=== PATIENT | female | born 1995 | race Caucasian/White ===

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

== ENCOUNTER → 2017-01-30 | Outpatient (REF) | payer OTHER | LOC: M LAB REF 11:12 | PROVIDERS: ATTEND Physician Assistant Medical | DX: J11.00 Influenza due to unidentified influenza virus with unspecified type of pneumonia (principal) ==

== ENCOUNTER 2017-05-20 17:50 | Emergency (ER) | payer OTHER | END 2017-05-20 19:30 | disposition home or self-care (01) | LOC: M ED 17:50 | DX: J02.9 Acute pharyngitis, unspecified (principal); B34.9 Viral infection, unspecified | CPT/HCPCS: 87880 ==

== ENCOUNTER 2017-10-09 19:00 | Emergency (ER) | payer OTHER ==
[2017-10-09] MEDS: AUGMENTIN 875 MG TAB PO (20:28)
[2017-10-09] MEDS: NORCO, ANEXSIA 5/325MG TABLET (HYDROcodone/ACETAMINOPHEN) PO (20:28)
[2017-10-09] MEDS: IBUPROFEN 800 MG TAB PO (20:28)
== END 2017-10-09 20:31 | disposition home or self-care (01) ==
LOC: M ED 19:00
DX: K04.7 Periapical abscess without sinus (principal); K02.9 Dental caries, unspecified; J45.909 Unspecified asthma, uncomplicated
CPT/HCPCS: 99283

== ENCOUNTER 2017-10-21 21:16 | Emergency (ER) | payer OTHER ==
[2017-10-21] MEDS: KETOROLAC 30 MG/ML VIAL (J1885) IV (22:00)
[2017-10-21] MEDS: NS 1,000 ML IV (22:00)
[2017-10-21] MEDS: diphenhydrAMINE INJ 50MG/ML VIAL (J1200) IV (22:00)
[2017-10-21] MEDS: METOCLOPRAMIDE INJ 10MG/2ML VIAL (J2765) IV (22:00)
[2017-10-21 22:11] LABS: BASO # 0.1 10^3/uL (0.0-0.2); BASO % 0.3 % (0.0-1.0); HEMATOCRIT 35.8 % (36.0-47.0); HEMOGLOBIN 11.7 g/dl (12.0-15.5); IMMATURE GRANULOCYTE % 0.5 % (0-3.0); LYMPH # 1.3 10^3/uL (1.5-6.5); LYMPH % 6.9 % (24.0-44.0); MEAN CORPUSCULAR HEMOGLOBIN 27.9 pg (27.0-33.0); MEAN CORPUSCULAR HGB CONC 32.7 g/dl (32.0-36.5); MEAN CORPUSCULAR VOLUME 85.4 fl (80.0-96.0); MONO # 1.3 10^3/uL (0.0-0.8); MONO % 6.7 % (0.0-5.0); NEUTROPHILS # 16.1 10^3/uL (1.8-7.7); NEUTROPHILS % 85.6 % (36.0-66.0); PLATELET COUNT, AUTOMATED 434 10^3/uL (150-450); RED BLOOD COUNT 4.19 10^6/uL (4.00-5.40); RED CELL DISTRIBUTION WIDTH 12.4 % (11.5-14.5); WHITE BLOOD COUNT 18.8 10^3/uL (4.0-10.0)
[2017-10-21 22:32] LABS: CONTROL LINE HCG INT CTR LINE PRESENT; HCG, SERUM QUALITATIVE NEGATIVE (NEGATIVE)
[2017-10-21 22:38] LABS: ALBUMIN 3.6 GM/DL (3.2-5.2); ALBUMIN/GLOBULIN RATIO 0.86 (1.00-1.93); ALKALINE PHOSPHATASE 83 U/L (45-117); ALT/SGPT 33 U/L (12-78); ANION GAP 10 MEQ/L (8-16); AST/SGOT 20 U/L (7-37); BILIRUBIN,TOTAL 0.7 MG/DL (0.2-1.0); BLOOD UREA NITROGEN 10 MG/DL (7-18); CALCIUM LEVEL 8.6 MG/DL (8.5-10.1); CARBON DIOXIDE LEVEL 22 MEQ/L (21-32); CHLORIDE LEVEL 107 MEQ/L (98-107); CREATININE FOR GFR 0.95 MG/DL (0.55-1.30); GLUCOSE, FASTING 97 MG/DL (70-100); LIPASE 99 U/L (73-393); POTASSIUM SERUM 3.3 MEQ/L (3.5-5.1); SODIUM LEVEL 139 MEQ/L (136-145); TOTAL PROTEIN 7.8 GM/DL (6.4-8.2)
[2017-10-21] MEDS ORDERED: ISOVUE-370 76% 100ML VIAL (Q9967) As Ordered (23:05)
[2017-10-22 01:09] LABS: KETONE, URINE AUTO RFX TRACE mg/dL (NEGATIVE); NITRITE, URINE AUTO RFX NEGATIVE (NEGATIVE); RBC, URINE AUTO RFX 2 /HPF (0-3); SPECIFIC GRAVITY UR AUTO RFX 1.034 (1.002-1.035); SQUAM EPITHELIAL CELL UR AURFX 0 /HPF (0-6)
[2017-10-22 01:33] LABS: LEUKOCYTE ESTERASE UR AUTO RFX 3+ (NEGATIVE); WBC, URINE AUTO RFX 95 /HPF (0-3)
[2017-10-22] MEDS: POTASSIUM CHLORIDE 10 MEQ SR TABLET PO (02:16)
[2017-10-22] MEDS ORDERED: ONDANSETRON 4MG/2ML VIAL (J2405) IV (03:00)
[2017-10-22] MEDS: CIPROFLOXACIN 500 MG TAB PO (03:18)
[2017-10-22] MEDS: metroNIDAZOLE (FLAGYL) 500 MG TAB PO (03:18)
== END 2017-10-22 03:22 | disposition home or self-care (01) ==
LOC: M ED 10-22 03:22
DX: N39.0 Urinary tract infection, site not specified (principal); K52.9 Noninfective gastroenteritis and colitis, unspecified; J45.909 Unspecified asthma, uncomplicated
CPT/HCPCS: J1200

== ENCOUNTER → 2018-06-17 | Outpatient (REF) | payer OTHER ==
[~2018-06-17] MED LIST changes: -ACET50TA PO; +AUGM875T28 PO; +CIPR-249 PO; +FLAG500T PO; +IBUP80TA PO; +MAGICMW MT; +MAPA500T2 PO
[2018-06-17 22:38] LABS: CHLAMYDIA DNA AMPLIFICATION NEGATIVE (NEGATIVE); GC DNA AMPLIFICATION NEGATIVE (NEGATIVE)
== END ==
LOC: M LAB REF 17:16
PROVIDERS: ATTEND Advanced Practice Midwife
DX: Z11.3 Encounter for screening for infections with a predominantly sexual mode of transmission (principal); Z12.4 Encounter for screening for malignant neoplasm of cervix

== ENCOUNTER 2018-07-29 10:46 | Emergency (ER) | payer OTHER ==
[~2018-07-29] VITALS: Ht 160 cm; Wt 88.8 kg
[2018-07-29 11:43] LABS: BASO # 0.1 10^3/uL (0.0-0.2); BASO % 0.9 % (0.0-1.0); EOS # 0.2 10^3/uL (0.0-0.50); EOS % 1.9 % (0.0-3.0); HEMATOCRIT 40.1 % (36.0-47.0); HEMOGLOBIN 13.3 g/dl (12.0-15.5); LYMPH # 2.6 10^3/uL (1.5-6.5); LYMPH % 29.4 % (24.0-44.0); MEAN CORPUSCULAR HEMOGLOBIN 29.2 pg (27.0-33.0); MEAN CORPUSCULAR HGB CONC 33.2 g/dl (32.0-36.5); MEAN CORPUSCULAR VOLUME 87.9 fl (80.0-96.0); MONO # 0.6 10^3/uL (0.0-0.8); MONO % 6.3 % (0.0-5.0); NEUTROPHILS # 5.5 10^3/uL (1.8-7.7); NEUTROPHILS % 61.2 % (36.0-66.0); PLATELET COUNT, AUTOMATED 419 10^3/uL (150-450); RED BLOOD COUNT 4.56 10^6/uL (4.00-5.40); WHITE BLOOD COUNT 8.9 10^3/uL (4.0-10.0)
[2018-07-29 12:12] LABS: BLOOD UREA NITROGEN 7 MG/DL (7-18); CALCIUM LEVEL 8.6 MG/DL (8.5-10.1); CARBON DIOXIDE LEVEL 25 MEQ/L (21-32); CHLORIDE LEVEL 110 MEQ/L (98-107); CREATININE FOR GFR 0.62 MG/DL (0.55-1.30); GLOMERULAR FILTRATION RATE > 60.0 (>60); GLUCOSE, FASTING 82 MG/DL (70-100); POTASSIUM SERUM 4.1 MEQ/L (3.5-5.1); SODIUM LEVEL 141 MEQ/L (136-145)
--- NOTE | 2018-07-29 12:48 | REP ---
FIRST TRIMESTER ULTRASOUND: Real-time sonographic evaluation of the pelvis performed utilizing transabdominal and endovaginal technique. The uterus measures 9.8 x 5.1 x 7.4 cm. Oval sac in the endometrial canal has a mean sac diameter of 21 mm which would correspond to an estimated gestational age of 7 weeks. Internally there are three ring-like structures having the appearance of yolk sacs, no pole is seen. No subchorionic hemorrhage is seen. Ovaries are normal in size and echotexture, right ovary measuring 2.8 x 1.7 x 2.5 cm and left ovary 2.5 x 2.0 x 1.4 cm. There is no evidence of adnexal mass or free fluid. There is no ovarian torsion, resistive index right ovary 0.51 and left ovary 0.62. IMPRESSION: Intrauterine sac contains three ring-like structures which may represent three yolk sacs. No pole is seen. No subchorionic hemorrhage. Findings may represent an early triplet . However, viability is uncertain. Recommend followup ultrasound and correlation with serial quantitative beta hCG values. Electronically Signed by Adrian Krishnan MD 07/29/2018 03:22 P
[2018-07-29 13:12] LABS: HCG, SERUM QUANTITATIVE 1584 MIU/ML
[2018-07-29 13:26] VITALS: BP 107/64
== END 2018-07-29 13:27 | disposition home or self-care (01) ==
LOC: M ED 10:46
DX: O20.0 Threatened abortion (principal); O99.519 Diseases of the respiratory system complicating pregnancy, unspecified trimester; J45.909 Unspecified asthma, uncomplicated; Z3A.00 Weeks of gestation of pregnancy not specified

== ENCOUNTER 2018-07-30 00:24 | Emergency (ER) | payer OTHER ==
[~2018-07-30] VITALS: Ht 160 cm; Wt 90.9 kg
[2018-07-30] MEDS: NS 1,000 ML IV ONE (01:00)
[2018-07-30 01:11] LABS: HEMATOCRIT 39.2 % (36.0-47.0); MEAN CORPUSCULAR HEMOGLOBIN 29.3 pg (27.0-33.0); MEAN CORPUSCULAR HGB CONC 33.2 g/dl (32.0-36.5); MEAN CORPUSCULAR VOLUME 88.3 fl (80.0-96.0); PLATELET COUNT, AUTOMATED 418 10^3/uL (150-450); RED BLOOD COUNT 4.44 10^6/uL (4.00-5.40); WHITE BLOOD COUNT 13.9 10^3/uL (4.0-10.0)
[2018-07-30] MEDS: ACETAMINOPHEN 325 MG TAB PO ONE (01:41)
[2018-07-30 02:05] VITALS: BP 105/54
== END 2018-07-30 02:12 | disposition home or self-care (01) ==
LOC: M ED 00:24
DX: O20.0 Threatened abortion (principal)

== ENCOUNTER → 2018-07-31 | Outpatient (CLI) | payer OTHER ==
[~2018-07-31] MED LIST changes: +PERC5TAB12 PO
== END ==
LOC: M LAB 11:34
PROVIDERS: ATTEND Physician Assistant Medical
DX: O20.0 Threatened abortion (principal)

== ENCOUNTER 2018-08-02 12:52 | Emergency (ER) | payer OTHER ==
[~2018-08-02] VITALS: Ht 157.5 cm; Wt 90.0 kg
[~2018-08-02 12:52] MED LIST changes: -PERC5TAB12 PO
[2018-08-02] MEDS ORDERED: KETOROLAC 30 MG/ML VIAL (J1885) IV ONE (13:15)
[2018-08-02] MEDS ORDERED: NS 1,000 ML IV ONE (13:15)
[2018-08-02 13:33] LABS: BASO # 0.1 10^3/uL (0.0-0.2); BASO % 0.5 % (0.0-1.0); EOS # 0.1 10^3/uL (0.0-0.50); EOS % 0.6 % (0.0-3.0); HEMATOCRIT 33.2 % (36.0-47.0); LYMPH # 2.4 10^3/uL (1.5-6.5); LYMPH % 19.6 % (24.0-44.0); MEAN CORPUSCULAR HEMOGLOBIN 29.7 pg (27.0-33.0); MEAN CORPUSCULAR HGB CONC 33.1 g/dl (32.0-36.5); MEAN CORPUSCULAR VOLUME 89.7 fl (80.0-96.0); MONO # 0.5 10^3/uL (0.0-0.8); MONO % 4.1 % (0.0-5.0); NEUTROPHILS # 9.3 10^3/uL (1.8-7.7); PLATELET COUNT, AUTOMATED 377 10^3/uL (150-450); WHITE BLOOD COUNT 12.4 10^3/uL (4.0-10.0)
[2018-08-02 14:10] LABS: BLOOD UREA NITROGEN 8 MG/DL (7-18); CALCIUM LEVEL 9.1 MG/DL (8.5-10.1); CARBON DIOXIDE LEVEL 26 MEQ/L (21-32); CHLORIDE LEVEL 108 MEQ/L (98-107); CREATININE FOR GFR 0.72 MG/DL (0.55-1.30); GLOMERULAR FILTRATION RATE > 60.0 (>60); GLUCOSE, FASTING 92 MG/DL (70-100); HCG, SERUM QUANTITATIVE 429 MIU/ML; POTASSIUM SERUM 4.7 MEQ/L (3.5-5.1); SODIUM LEVEL 141 MEQ/L (136-145)
[2018-08-02] MEDS ORDERED: IBUP80TA PO (16:07)
[2018-08-02] MEDS ORDERED: PERC5TAB12 PO (16:07)
[2018-08-02 16:20] VITALS: BP 100/77
--- NOTE | 2018-08-03 10:23 | REP ---
FIRST TRIMESTER OBSTETRIC SONOGRAPHY: HISTORY: Vaginal bleeding and cramping. Beta hCG level 2 days ago 862, today 429. Comparison sonography July 29, 2018. IMPRESSION: Uterus is now empty. No gestational sac is visible. Findings most compatible with spontaneous . FINDINGS: Transvaginal and transabdominal scanning are performed. A normal-sized empty uterus is seen with dimensions of 9.5 x 4.2 x 5.0 cm. Endometrial echo 0.1 cm thick. No gestational sac is seen. Bilaterally normal ovaries are observed. Right ovary dimensions are 2.8 x 1.5 x 1.9 cm. Left ovary measures 2.6 x 1.3 x 1.7 cm. Left ovary is only visible transabdominally. Doppler flow is normal in both ovaries. Resistive indices are 0.53 and 0.70 on the right and left respectively. IMPRESSION: Uterus is now empty. No gestational sac is visible. Findings most compatible with spontaneous . Electronically Signed by Hood Bermudez MD 08/03/2018 10:29 A
== END 2018-08-02 16:28 | disposition home or self-care (01) ==
LOC: M ED 12:52
DX: O03.89 Complete or unspecified spontaneous abortion with other complications (principal); D64.9 Anemia, unspecified
CPT/HCPCS: 76801; 76817; 80048; 84702; 85025; 93976; 96374; 99284; J1885

== ENCOUNTER → 2018-10-04 | Outpatient (REF) | payer OTHER ==
[~2018-10-04] MED LIST changes: +PERC5TAB12 PO
[2018-10-04 18:31] LABS: URINE PREG TEST NEGATIVE (NEGATIVE)
== END ==
LOC: M LAB REF 10:43
PROVIDERS: ATTEND Nurse Practitioner Family
DX: Z36.89 Encounter for other specified antenatal screening (principal)

== ENCOUNTER → 2019-09-08 | Outpatient (REF) | payer OTHER, MEDICAID ==
[2019-09-08 18:56] LABS: HEMATOCRIT 36.7 % (36.0-47.0); HEMOGLOBIN 12.1 g/dl (12.0-15.5); MEAN CORPUSCULAR HEMOGLOBIN 29.9 pg (27.0-33.0); MEAN CORPUSCULAR VOLUME 90.6 fl (80.0-96.0); PLATELET COUNT, AUTOMATED 384 10^3/uL (150-450); RED BLOOD COUNT 4.05 10^6/uL (4.00-5.40); WHITE BLOOD COUNT 11.1 10^3/uL (4.0-10.0)
[2019-09-08 19:52] LABS: HIV 1&2 SCREEN CENTAUR NEGATIVE (NEGATIVE)
[2019-09-08 20:43] LABS: CHLAMYDIA DNA AMPLIFICATION NEGATIVE (NEGATIVE); GC DNA AMPLIFICATION NEGATIVE (NEGATIVE)
[2019-09-10 11:52] LABS: HEPATITIS B SURFACE ANTIGEN NEGATIVE (NEGATIVE)
== END ==
LOC: M PLALAB 14:35
PROVIDERS: ATTEND Advanced Practice Midwife
DX: Z34.91 Encounter for supervision of normal pregnancy, unspecified, first trimester (principal)

== ENCOUNTER → 2019-10-07 | Outpatient (CLI) | payer OTHER ==
[~2019-10-07] MED LIST changes: +DOCU100C16 PO; +PERCOCET PO
--- NOTE | 2019-10-08 10:08 | REP ---
REASON: anatomy. Multiple ultrasonographic images of the gravid uterus show a single living intrauterine gestation in the cephalic presentation. Doppler interrogation of the heart shows a heart rate of 134 beats per minute. The placenta is anterior and not low lying. The subjective amniotic fluid volume is within normal limits. The cervix measures 3.7 cm in length and is closed. Evaluation of the maternal adnexal space showed no abnormalities. BPD 4.1 cm = 18 weeks 3 days HC 15.9 cm = 18 weeks 5 days AC 14.1 cm. = 19 weeks 3 days FL 3.1 cm = 19 weeks 5 days The estimated weight is 292 grams, which is at the 66th percentile for a 22-lcwf-7-day gestational age. The placenta is anterior and not low lying. The anatomical structures seen as unremarkable are as follows: Thalami, cavum septum pellucidum, cerebellum, cisterna magna, cerebral ventricles, upper lip, four-chamber heart, right and left ventricular outflow tracts, stomach, cord insertion, three-vessel umbilical cord, kidneys, bladder, spine, and upper and lower extremities. A 5 mm sized cyst was seen in the choroid plexus on the left. IMPRESSION: Single living intrauterine gestation as described above with an estimated gestational age of 19 weeks 0 days via composite criteria and an estimated date of delivery of 03/02/2020 by today's exam. No anomalies were detected, however, I recommend a followup examination to ensure resolution of the 5 mm size cyst seen in the left choroid plexus.
== END ==
LOC: M WHC 13:14
PROVIDERS: ATTEND Advanced Practice Midwife
DX: Z34.82 Encounter for supervision of other normal pregnancy, second trimester (principal); Z3A.19 19 weeks gestation of pregnancy

== ENCOUNTER → 2020-02-01 | Outpatient (REF) | payer OTHER, MEDICAID ==
[~2020-02-01] MED LIST changes: -DOCU100C16 PO; -PERCOCET PO
== END ==
LOC: M SFHCWAGY 12:48
PROVIDERS: ATTEND Specialist
DX: Z34.83 Encounter for supervision of other normal pregnancy, third trimester (principal); Z3A.00 Weeks of gestation of pregnancy not specified

== ENCOUNTER 2020-02-18 09:50 | Inpatient (IN) | payer OTHER, MEDICAID ==
[2020-02-18] VITALS (7 sets, daily range): BP systolic 117–145; BP diastolic 58–88
[~2020-02-18] VITALS: Ht 157.5 cm; Wt 98.7 kg
[2020-02-18] MEDS ORDERED: PENICILLIN G POTASSIUM IV 5 MU in D5W MINI-BAG PLUS 100 ML IV STA ×2 (11:07→16:54)
[2020-02-18 11:38] LABS: HEMATOCRIT 32.5 % (36.0-47.0); HEMOGLOBIN 10.5 g/dl (12.0-15.5); MEAN CORPUSCULAR HEMOGLOBIN 28.5 pg (27.0-33.0); MEAN CORPUSCULAR HGB CONC 32.3 g/dl (32.0-36.5); MEAN CORPUSCULAR VOLUME 88.1 fl (80.0-96.0); PLATELET COUNT, AUTOMATED 330 10^3/uL (150-450); RED BLOOD COUNT 3.69 10^6/uL (4.00-5.40); WHITE BLOOD COUNT 13.8 10^3/uL (4.0-10.0)
[2020-02-18] MEDS ORDERED: miSOPROStol 50 MCG 1/2 TAB (S0191) PO ONE (12:45)
[2020-02-18] MEDS ORDERED: PENICILLIN G POTASSIUM IV 2.5 MU in IV 1 EA IV SCH ×2 (15:15→21:00)
[2020-02-18] MEDS ORDERED: OXYTOCIN DRIP 30 UNITS in IV 1 EA IV SCH ×2 (17:00→22:44)
[2020-02-18] MEDS: LR 1,000 ML IV SCH ×2 (17:03→20:56)
--- NOTE | 2020-02-18 17:03 | HPEPDOC ---
Obstetrical History & Physical General Date of Admission Feb 18, 2020 at 09:50 Primary Care Physician: MARIPOSA CEBALLOS CNM History of Present Illness Shahrzad is a 24-year-old female who is a at 39 weeks gestation with an RANI of 02/25/20 based off of her LMP and consistent with her first trimester ultrasound. She initiated care in her first trimester with [facility]. Her has been complicated by A1GDM and a history of shoulder dystocia. She has not been testing her blood sugars appropriately making it difficult to monitor her GDM. She presents to L&D for induction of labor due to gestational diabetes. She has been noncompliant with testing her blood sugars. She reports occasional contractions and active movement. She denies leaking of fluid or vaginal bleeding. Information Provided By: Patient Age: 24 : 3 Term: 1 Pre-term: 0 Abortions: 1 Livin Care Care: Good Care Dating Final EDC: Feb 25, 2020 Final EDC by: LMP LMP: May 21, 2019 EGA at Admission: 39 Antepartum Course Height (inches): 62 Pre- weight (lbs.): 199 Admission Weight (lbs.): 217 Change in Weight (lbs.): 18 Past Medical History Past Obstetrical History : Past Obstetrical History: Primgravida Date of Delivery: Nov 30, 2016 Gestation: 40 Type of Delivery: Spontaneous Vaginal Del. Sex of Infant: Male (7 lbs 15 oz) Complications: Yes (GDM and shoulder dystocia) AUTISM SPECIALIST History: No pertinent history Past Medical History Medical History history of gestational diabetes Surgical History: Denies/None Family History Significant Family History: No pertinent family hx Social History Marital Status: Single Family situation: Spouse/partner home Allergies Coded Allergies: No Known Drug Allergies (Verified Allergy, Unknown, 08/02/18) Physical Examination Physical Examination GENERAL: Alert and oriented times three. ABDOMEN: Gravid and non-tender to touch. FETUS: Is vertex (VTX) by sterile vaginal examination (SVE), fetus is vertex (VTX) by Lewis. EFW 8 lbs. LUNGS: Clear to auscultation (CTA). EXTREMITIES: Generalized edema. No clonus. Deep tendon reflexes (DTRs) + 2. Vital Signs/I&O Vital Signs Date Time Temp Pulse Resp B/P (MAP) Pulse Ox O2 Delivery O2 Flow Rate FiO2 02/18/20 15:11 97.8 88 18 132/58 (82) Laboratory Data 24H LABS Laboratory Tests 2 02/18/20 09:57: Serology Scanned Report Hepatitis B Testing 02/18/20 11:25: Nucleated Red Blood Cells % (auto) 0.0, Syphilis Serology NONREACTIVE 02/18/20 13:02: Bedside Glucose (Misc Panel) 71 02/18/20 16:08: Bedside Glucose (Misc Panel) 74 CBC/BMP Laboratory Tests 02/18/20 11:25 Urine Culture: No Growth Pertinent Laboratoy Data Blood Type: A+ RBC Antibody Screen: Negative HIV: Negative Hepatitis B: Negative Hepatitis C: Negative Rapid Plasma Reagin: Nonreactive Rubella: Immune Chlamydia/Gonorrhea: Negative Group B Streptococcus: Positive Vaginal Examination Dilation: 3 cm (3-4) Effacement: 50% Station: -2 Cervical Consistency: Soft Cervical Position: Middle Presentation: Cephalic presentation Position: Vertex (occiput) Assessment Heart Rate (FHR): 120 Variability: Moderate Accelerations: Positive Decelerations: None Tocometer Contractions: Yes Frequency: every 2-5 min. Multi-drug resistant Organism: No history of MDRO Assessment/Plan Assessment IUP at 39 weeks gestation A1GDM Category I FHR tracing GBS positive induction of labor Plan Admit to labor and delivery. Dr. Machuca made aware of patient being in department and plan of care collaborated. Market Development Manager on methods of induction including Cytotec, jeter bulb, and IV Pitocin. Diet: regular now then change to clears with the start of IV Pitocin. Group B Streptococcus positive. Start IV antibiotics with IV Pitocin. Labs and intravenous (IV) per unit protocol. Anesthesia consult per patient's request. Lactated Ringers (LR): Bolus 500 mL prior to epidural, then at 125 mL/hr. Anticipate cervical ripening and cervical change. C-S as appropriate. MARIPOSA CEBALLOS CNM Feb 18, 2020 17:03
[2020-02-18 20:09] LABS: ALT/SGPT 9 U/L (12-78); BILIRUBIN,TOTAL 0.3 MG/DL (0.2-1.0); CREATININE FOR GFR 0.65 MG/DL (0.55-1.30); GLOMERULAR FILTRATION RATE > 60.0 (>60); LDH LACTATE DEHYDROGENASE 199 U/L (84-246); URIC ACID 4.6 MG/DL (2.6-6.0)
[2020-02-18] MEDS ORDERED: FENTANYL 2MCG/ML ROPIVACAINE 0.2% IN 0.9% NACL 100ML IVBAG As Ordered ONE (20:34)
[2020-02-18] MEDS ORDERED: diphenhydrAMINE 50MG/ML VIAL (J1200) IV PRN ×2 (20:53→22:40)
[2020-02-18] MEDS ORDERED: REFRIGERATOR IV KEYS XX PRN (20:53)
[2020-02-18] MEDS ORDERED: LACTATED RINGER'S 1000 ML IV PRN (20:53)
[2020-02-18] MEDS ORDERED: EPIDURAL COMMENT XX SCH (20:53)
[2020-02-18] MEDS ORDERED: EPIDURAL/PCA KEYS XX PRN (20:53)
[2020-02-18] MEDS ORDERED: NALOXONE INJ 0.4MG/1ML VIAL (J2310 PER 1MG) IV PRN ×3 (20:53→22:40)
[2020-02-18] MEDS ORDERED: ePHEDrine SULFATE 25 MG/5 ML(5MG/ML) SYRINGE IV PRN (20:53)
[2020-02-18] MEDS ORDERED: FENTANYL/ROPIVACAINE/NACL BAG 100 ML EPIDURAL SCH (20:53)
[2020-02-18] MEDS ORDERED: ONDANSETRON 4MG/2ML VIAL IV PRN ×3 (20:53→22:45)
[2020-02-18] MEDS ORDERED: ceFAZolin 2 GM/D5W 50 ML IV BAG (J0690 PER 500MG) As Ordered ONE (22:33)
[2020-02-18] MEDS ORDERED: fentaNYL 100 MCG/2 ML INJECTION (J3010) As Ordered ONE (22:34)
[2020-02-18] MEDS ORDERED: PHENYLephrine HCL 500 MCG/5 ML (100MCG/ML) SYRINGE (J2370) As Ordered ONE (22:34)
[2020-02-18] MEDS ORDERED: ONDANSETRON 4MG/2ML VIAL As Ordered ONE (22:34)
[2020-02-18] MEDS ORDERED: OXYTOCIN INJ 10 UNITS/ML VIAL (J2590) As Ordered ONE (22:35)
[2020-02-18] MEDS ORDERED: MORPHINE PRES-FREE INJ 10 MG/10 ML VIAL (J2274) As Ordered ONE (22:35)
[2020-02-18] MEDS ORDERED: NALBUPHINE HCL 10 MG/ML AMP (J2300) IV PRN (22:40)
[2020-02-18] MEDS ORDERED: METOCLOPRAMIDE INJ 10MG/2ML VIAL (J2765 PER 1) IV PRN (22:40)
[2020-02-18 22:41] LABS: CORD GAS ABE V -7.3; CORD GAS HCO3 V 20.5 MEQ/L; CORD GAS O2 SAT A < 15.0 %; CORD GAS O2 SAT V 77.8 %; CORD GAS PH V 7.231 UNITS; CORD GAS PO2 V 40.7 mmHg; CORD GAS SBC V 18.2 MEQ/L; CORD GAS TCO2 V 22.1 MEQ/L
[2020-02-18] MEDS ORDERED: KETOROLAC 60MG 2ML VIAL As Ordered ONE (22:44)
[2020-02-18] MEDS ORDERED: LR 1,000 ML IV SCH (22:44)
[2020-02-18] MEDS ORDERED: ceFAZolin SOD 2 GM in IV 1 EA IV ONE (22:45)
[2020-02-18] MEDS ORDERED: KETOROLAC 30 MG/ML 1ML VIAL IV PRN (22:45)
[2020-02-18] MEDS ORDERED: PERCOCET 5MG/325MG TAB PO PRN (22:45)
[2020-02-18] MEDS ORDERED: RHOGAM 300 MCG (1500 IU) INJ (J2790) IM SCH (22:45)
[2020-02-18] MEDS ORDERED: MEASLES,MUMPS,RUBELLA VACCINE INJ (MMR-II) (90707) SC SCH (22:45)
[2020-02-18] MEDS ORDERED: DOCUSATE SODIUM 100 MG CAP PO PRN (22:45)
[2020-02-18 22:47] LABS: CORD GAS ABE A -17.2; CORD GAS HCO3 A 18.5 MEQ/L; CORD GAS TCO2 A 21.9 MEQ/L
[2020-02-18 22:50] LABS: CORD GAS PH A 6.836 UNITS
[2020-02-18] MEDS ORDERED: dexameTHASONE 4 MG/ML 1ML VIAL (J1100 PER 1MG) As Ordered ONE (22:50)
[2020-02-18] MEDS ORDERED: METOCLOPRAMIDE INJ 10MG/2ML VIAL (J2765 PER 1) As Ordered ONE (22:51)
[2020-02-18] MEDS ORDERED: fentaNYL 100 MCG/2 ML INJECTION (J3010) IV PRN (23:15)
[2020-02-18] MEDS ORDERED: oxyCODONE 5MG TAB PO PRN (23:15)
[2020-02-19] VITALS (9 sets, daily range): BP systolic 95–129; BP diastolic 50–61
--- NOTE | 2020-02-19 00:19 | REPVR ---
PROCEDURE INFORMATION: Exam: XR Abdomen, 1 View Exam date and time: 02/18/2020 10:52 PM Age: 24 years old Clinical indication: Screening exam; Other: R/O retained surgical products, emergency surgery no count TECHNIQUE: Imaging protocol: XR of the abdomen. Views: Frontal supine view of the abdomen. 1 View. COMPARISON: CT ABD/PEL W/IV CONTRAST ONLY 10/22/2017 12:08 AM FINDINGS: Tubes, catheters and devices: Epidural catheter overlying the upper L2 level entering at L2-L3. Gastrointestinal tract: Minimal gas which is in the colon, primarily transverse colon. Mild scattered colonic stool is noted. No abnormal dilatation of bowel. Bones/joints: Unremarkable. Soft tissues: No retained surgical instruments or foreign bodies are noted. IMPRESSION: 1. Epidural catheter entering at L2-L3 extending cephalad to the upper L2 level. 2. Otherwise negative abdomen with minimal colonic gas. No retained surgical instruments or foreign bodies are noted. Electronically signed by: Gallito Ward On 02/19/2020 00:18:56 AM
--- NOTE | 2020-02-19 00:39 | IPNPDOC ---
Text Note Date of Service The patient was seen on 02/19/20. NOTE Subjective: Ady reports she is comfortable with her epidural now. She has received 1 dose of Cytotec and has been started on IV Pitocin for her induction. Objective: Category I FHR with baseline of 120, moderate variability, positive accelerations, no decelerations. Contractions every 1-6 minutes. IV Pitocin at 2 mu/min currently. SVE: 6/80/-2, anterior, soft, cephalic presentation. Consent obtained to artificially rupture patient. Patient consented to procedure. AROM to a large amount of clear fluid that was slowly being expressed during a contraction. Once contraction started to ease a small portion of the cord was noted at 5 o'clock compressed against the head. When the contraction was completely gone more fluid continued to leak and the cord started to prolapse. Requested for Dr. Machuca, Dr. Jasso, Dr. Agarwal and anesthesia to all be notified for a stat section. The bed was placed in trendelenburg position, the patient was unhooked from all monitors and we were rolled into the operating room by nursing staff while my hand continued to put pressure against the head to take pressure off of the umbilical cord. Hand was not removed from t betito of rupture until time of delivery. AROM: 2204 Cord prolapse noted: [id number] In operating room: 2210 Dr. Jasso in OR: 2220 Delivery of : 2221 Live female. Apgars: 1/6/8. Weight 7 lbs 8 oz.; [address] Agarwal in to OR at 2223. transported to NICU. Assessment: IUP at 39 weeks gestation, cord prolapse Plan: Physicians to take over care of mother currently. Will continue to monitor patient and status of . VS,Fishbone, I+O VS, Fishbone, I+O Laboratory Tests 02/18/20 11:25 Item Value Date Time Cord Arterial Blood pH 6.836 UNITS *L 02/18/202237 Cord Arterial Blood PCO2 112.0 mmHg 02/18/202237 Cord Arterial Blood PO2 13.0 mmHg 02/18/202237 Cord Arterial Blood HCO3 18.5 MEQ/L 02/18/202237 Cord Arterial Blood Total CO2 21.9 MEQ/L 02/18/202237 Cord Arterial Blood Base Excess -17.2 02/18/202237 Cord Arterial Base Excess (Standard MEQ/L 02/18/202237 Cord Arterial Bld Oxygen Saturation < 15.0 % 02/18/202237 Item Value Date Time Cord Venous Blood pH 7.231 UNITS 02/18/202237 Cord Venous Blood PCO2 50.0 mmHg 02/18/202237 Cord Venous Blood PO2 40.7 mmHg 02/18/202237 Cord Venous Blood HCO3 20.5 MEQ/L 02/18/202237 Cord Venous Blood Total CO2 22.1 MEQ/L 02/18/202237 Cord Venous Base Excess (Actual) -7.3 02/18/202237 Cord Venous Base Excess (Standard) 18.2 MEQ/L 02/18/202237 Cord Venous Blood Oxygen Saturation 77.8 % 02/18/202237 Repeat arterial blood gas -Arterial pH: 7.118 -Arterial CO2: 19 -Arterial HCO3: 17.3 -Base excess: -12.1 -Bicarbonate: 14.7 NAME: ADY REEVES DATE OF : 1995 BUSINESS NUMBER: [id number] AGE: 24 SEX: F REPORT #: [id number] ROOM: [facility] TECHNOLOGIST: ELISSA DOCTOR: MARIPOSA CEBALLOS CNM Ordered for Date&Time: 02/18/202232 cc: [~ rep ct ivnm] Service Date&Time: 02/18/202251 EXAMINATION REQUESTED: Abdomen,Flat Plate KUB REASON FOR PATIENT VISIT: INDUCTION REASON FOR EXAMINATION: r/o retained surgical products, emergency surgery no count PROCEDURE INFORMATION: Exam: XR Abdomen, 1 View Exam date and time: 02/18/2020 10:52 PM Age: 24 years old Clinical indication: Screening exam; Other: R/O retained surgical products, emergency surgery no count TECHNIQUE: Imaging protocol: XR of the abdomen. Views: Frontal supine view of the abdomen. 1 View. COMPARISON: CT ABD/PEL W/IV CONTRAST ONLY 10/22/2017 12:08 AM FINDINGS: Tubes, catheters and devices: Epidural catheter overlying the upper L2 level entering at L2-L3. Gastrointestinal tract: Minimal gas which is in the colon, primarily transverse colon. Mild scattered colonic stool is noted. No abnormal dilatation of bowel. Bones/joints: Unremarkable. Soft tissues: No retained surgical instruments or foreign bodies are noted. IMPRESSION: 1. Epidural catheter entering at L2-L3 extending cephalad to the upper L2 level. 2. Otherwise negative abdomen with minimal colonic gas. No retained surgical instruments or foreign bodies are noted. Electronically signed by: Gallito Ward On 02/19/2020 00:18:56 AM MARIPOSA CEBALLOS CNM Feb 19, 2020 00:39
[2020-02-19] MEDS: KETOROLAC 30 MG/ML 1ML VIAL IV SCH ×3 (03:43→17:03)
[2020-02-19 07:13] LABS: HEMATOCRIT 26.9 % (36.0-47.0); HEMOGLOBIN 8.7 g/dl (12.0-15.5); MEAN CORPUSCULAR HEMOGLOBIN 28.7 pg (27.0-33.0); MEAN CORPUSCULAR HGB CONC 32.3 g/dl (32.0-36.5); MEAN CORPUSCULAR VOLUME 88.8 fl (80.0-96.0); PLATELET COUNT, AUTOMATED 315 10^3/uL (150-450); RED BLOOD COUNT 3.03 10^6/uL (4.00-5.40); WHITE BLOOD COUNT 23.5 10^3/uL (4.0-10.0)
--- NOTE | 2020-02-19 08:07 | IPNPDOC ---
Progress Note Date of Service: Feb 19, 2020 Day#: 1 Progress Note SUBJECT: Shahrzad is a 24-year-old female who is now a who had a primary section due to a cord prolapse. Her epidural was bolused for her surgery. She reports her pain has been managed well. IV is still infusion and jeter catheter is in place. OBJECTIVE: VITAL SIGNS: Within normal limits, afebrile. Alert and oriented times three. Breath sounds clear to auscultation. Abdomen: Fundus firm at U. Abdominal bandage is intact. Minimal lochia. ASSESSMENT: Day 1 postoperative PLAN: 1. Continue supportive nursing care and pain management. 2. Jeter catheter to be removed and patient to attempt a regular diet. 3. Patient to attempt to get out of bed and ambulate. VS, I&O, 24H, Fishbone Vital Signs/I&O Vital Signs Date Time Temp Pulse Resp B/P (MAP) Pulse Ox O2 Delivery O2 Flow Rate FiO2 02/19/20 05:31 97.3 64 16 111/54 (73) 97 Room Air I&O- Last 24 Hours up to 6 AM 02/19/20 06:00 Intake Total 1800 ml Output Total 1655 ml Balance 145 ml Laboratory Data 24H LABS Laboratory Tests 2 02/18/20 09:57: Serology Scanned Report Hepatitis B Testing 02/18/20 11:25: Nucleated Red Blood Cells % (auto) 0.0, Glomerular Filtration Rate > 60.0, Uric Acid 4.6, Total Bilirubin 0.3, Aspartate Amino Transf (AST/SGOT) 14, Alanine Aminotransferase (ALT/SGPT) 9L, Lactate Dehydrogenase 199, Syphilis Serology NONREACTIVE 02/18/20 13:02: Bedside Glucose (Misc Panel) 71 02/18/20 16:08: Bedside Glucose (Misc Panel) 74 02/18/20 18:43: Bedside Glucose (Misc Panel) 73 02/18/20 22:38: Cord Arterial Blood pH 6.836*L, Cord Arterial Blood PCO2 112.0, Cord Arterial Blood PO2 13.0, Cord Arterial Blood HCO3 18.5, Cord Arterial Blood Total CO2 21.9, Cord Arterial Blood Base Excess -17.2, Cord Arterial Base Excess (Standard , Cord Arterial Bld Oxygen Saturation < 15.0, Cord Venous Blood pH 7.231, Cord Venous Blood PCO2 50.0, Cord Venous Blood PO2 40.7, Cord Venous Blood HCO3 20.5, Cord Venous Blood Total CO2 22.1, Cord Venous Base Excess (Actual) -7.3, Cord Venous Base Excess (Standard) 18.2, Cord Venous Blood Oxygen Saturation 77.8 02/19/20 06:54: Nucleated Red Blood Cells % (auto) 0.0 CBC/BMP Laboratory Tests 02/18/20 11:25 02/19/20 06:54 MARIPOSA CEBALLOS CNM Feb 19, 2020 08:07
[2020-02-19] MEDS: PRENATAL VITAMINS CHEWABLE TABLET PO SCH (09:00)
[2020-02-19] MEDS ORDERED: BOOSTRIX/ADACEL VACCINE (DIPHTH/PERTUSS/ACELL/TETANUS) 0.5ML SYR IM ONE (09:00)
[2020-02-19] MEDS ORDERED: INFLUENZA QUADRIVALENT PF VACCINE 0.5ML SYRINGE IM ONE (09:00)
[2020-02-20] MEDS: PERCOCET 5MG/325MG TAB PO PRN ×3 (01:24→19:29)
[2020-02-20 01:28] VITALS: BP 122/65
[2020-02-20] MEDS: IBUPROFEN 800 MG TAB PO SCH ×3 (01:32→16:50)
[2020-02-20 05:44] VITALS: BP 123/58
[2020-02-20] MEDS ORDERED: INFLUENZA QUADRIVALENT PF VACCINE 0.5ML SYRINGE IM ONE (09:00)
[2020-02-20] MEDS ORDERED: BOOSTRIX/ADACEL VACCINE (DIPHTH/PERTUSS/ACELL/TETANUS) 0.5ML SYR IM ONE (09:00)
[2020-02-20] MEDS: PRENATAL VITAMINS CHEWABLE TABLET PO SCH (09:31)
[2020-02-20 10:46] VITALS: BP 118/58
[2020-02-20 18:34] VITALS: BP 136/69
[2020-02-21] MEDS: IBUPROFEN 800 MG TAB PO SCH ×2 (00:32→09:22)
[2020-02-21] MEDS: PERCOCET 5MG/325MG TAB PO PRN (01:48)
[2020-02-21] MEDS ORDERED: IBUP80TA PO (07:01)
[2020-02-21] MEDS ORDERED: DOCU100C16 PO (07:01)
[2020-02-21] MEDS ORDERED: PERCOCET PO (07:01)
[2020-02-21] MEDS ORDERED: medroxyPROGESTERone ACET IM SUSP 150 MG/ML VIAL (J1050) IM ONE (08:00)
[2020-02-21] MEDS: PRENATAL VITAMINS CHEWABLE TABLET PO SCH (09:22)
[2020-02-21 10:00] VITALS: BP 127/60
--- NOTE | 2020-02-21 11:43 | RO ---
DATE OF OPERATION: 02/18/2020 PREOPERATIVE DIAGNOSIS: Cord prolapse in labor POSTOPERATIVE DIAGNOSIS: Cord prolapse in labor PROCEDURE: Emergent primary low transverse section. ANESTHESIA: Epidural. SURGEON: Sergei Jasso MD PLATE DRYING MACHINE TENDER: Yin Watson CNM and Kyler Machuca MD INDICATIONS: Donna is a 24-year-old female that was called emergently to the OR after the patient had a cord prolapse while in labor with an epidural in place. Upon our arrival, the patient was on the operating table, an emergent section was called. FINDINGS: Live female with score of 2 and 2. Baby cared for by our pearl cutter. Normal appearing tubes and ovaries. Cord blood and cord gas sent. Placenta removed manually. PROCEDURE: While the patient was on the operating room table, a quick Betadine prep was done. At this point, an incision was made. This was carried down to the muscle. The muscle with a series of upper and lateral traction was spread laterally. The peritoneal cavity was entered bluntly. A low transverse uterine incision was made and infant was delivered in approximately 30 to 40 seconds. The baby was then handed over to the pearl cutter and cord blood and cord gas was sent. At this point, the uterus was cleared of all clot and debris. The placenta removed manually. The uterine incision was then closed in two separate layers of #0 Vicryl suture. At this point, Dr. Machuca assisted with the closure of the peritoneal cavity, as well as the fascia. All superficial bleeders were coagulated and the skin was re-approximated in a subcuticular fashion using 3-0 Vicryl and a David. X-ray was called and did not have a time for instrument count. The x-ray was taken. Initial x-ray shows no evidence of any foreign object left in the pelvis or abdomen. At this point, the sterile dressing was placed. The patient was then transferred to recovery room in stable condition. JUHI
== END 2020-02-21 14:15 | disposition home or self-care (01) | DRG 540 ==
LOC: M LDI 09:50 → M OBS 02-19 01:36
PROVIDERS: ADMIT Advanced Practice Midwife; ATTEND Obstetrics & Gynecology
PROC: 10907ZC Drainage of Amniotic Fluid, Therapeutic from Products of Conception, Via Natural or Artificial Opening (ICD-10-PCS; 2020-02-18)
PROC: 3E0P7GC Introduction of Other Therapeutic Substance into Female Reproductive, Via Natural or Artificial Opening (ICD-10-PCS; 2020-02-18)
PROC: 10D00Z1 Extraction of Products of Conception, Low, Open Approach (ICD-10-PCS; principal; 2020-02-18 22:21)
DX: O24.420 Gestational diabetes mellitus in childbirth, diet controlled (principal); O99.820 Streptococcus B carrier state complicating pregnancy; Z3A.39 39 weeks gestation of pregnancy; O69.0XX0 Labor and delivery complicated by prolapse of cord, not applicable or unspecified; Z37.0 Single live birth

== ENCOUNTER 2020-03-28 14:21 | Emergency (ER) | payer MEDICAID, OTHER ==
[~2020-03-28] VITALS: Ht 157.5 cm; Wt 90.3 kg
[~2020-03-28 14:21] MED LIST changes: +DOCU100C16 PO; +PERCOCET PO
[2020-03-28] MEDS ORDERED: NS 1,000 ML IV ONE (14:45)
[2020-03-28] MEDS ORDERED: ACETAMINOPHEN 325 MG TAB PO ONE (15:00)
[2020-03-28 15:11] LABS: BASO # 0.1 10^3/uL (0.0-0.2); BASO % 0.5 % (0.0-1.0); EOS # 0.2 10^3/uL (0.0-0.5); EOS % 1.1 % (0.0-3.0); HEMATOCRIT 33.1 % (36.0-47.0); HEMOGLOBIN 10.3 g/dl (12.0-15.5); LYMPH # 1.5 10^3/uL (1.5-5.0); LYMPH % 9.1 % (24.0-44.0); MEAN CORPUSCULAR HGB CONC 31.1 g/dl (32.0-36.5); MEAN CORPUSCULAR VOLUME 86.9 fl (80.0-96.0); MONO # 1.6 10^3/uL (0.0-0.8); MONO % 9.8 % (0.0-5.0); NEUTROPHILS % 79.1 % (36.0-66.0); PLATELET COUNT, AUTOMATED 406 10^3/uL (150-450); RED BLOOD COUNT 3.81 10^6/uL (4.00-5.40); WHITE BLOOD COUNT 16.5 10^3/uL (4.0-10.0)
[2020-03-28] MEDS ORDERED: MORPHINE 4 MG/ML 1ML VIAL/SYRINGE (J2270) IV ONE (15:15)
[2020-03-28 15:43] LABS: ALBUMIN 3.2 GM/DL (3.2-5.2); ALT/SGPT 39 U/L (12-78); BILIRUBIN,DIRECT 0.2 MG/DL (0.0-0.2); BILIRUBIN,TOTAL 0.7 MG/DL (0.2-1.0); BLOOD UREA NITROGEN 10 MG/DL (7-18); CARBON DIOXIDE LEVEL 23 MEQ/L (21-32); CHLORIDE LEVEL 110 MEQ/L (98-107); CREATININE FOR GFR 0.98 MG/DL (0.55-1.30); GLOMERULAR FILTRATION RATE > 60.0 (>60); GLUCOSE, FASTING 89 MG/DL (70-100); LIPASE 102 U/L (73-393); POTASSIUM SERUM 3.6 MEQ/L (3.5-5.1); SODIUM LEVEL 139 MEQ/L (136-145); TOTAL PROTEIN 6.9 GM/DL (6.4-8.2)
--- NOTE | 2020-03-28 15:59 | REP ---
INDICATION: pain/fever after . COMPARISON: None. TECHNIQUE: Transabdominal and transvaginal scanning performed. FINDINGS: Uterine dimensions are 8.1 x 4.1 x 6.7 cm. Endometrial echo is 4 mm in AP dimension and centrally placed. The bladder measures 7.4 x 6.8 x 5.8 cm. The right ovary has dimensions of 3.1 x 2.7 x 1.5 cm. It's Doppler flow is normal with a resistive index of 0.57. The left ovary dimensions are 2.8 x 2.1 x 1.8 cm. It's Doppler flow was normal with resistive index of 0.59. There is no adnexal mass identified. There is trace free fluid in the cul-de-sac likely physiologic in nature. IMPRESSION: Negative pelvic ultrasound. <Electronically signed by Adrian Krishnan > 03/28/20 [id number]
[2020-03-28 16:12] LABS: APPEARANCE, URINE CLOUDY (CLEAR); BACTERIA, URINE AUTO 1+ (NEGATIVE); BILIRUBIN, URINE AUTO NEGATIVE (NEGATIVE); BLOOD, URINE BLOOD 1+ (NEGATIVE); COLOR, URINE YELLOW (YELLOW); GLUCOSE, URINE (UA) AUTO NEGATIVE (NEGATIVE); KETONE, URINE AUTO NEGATIVE (NEGATIVE); LEUKOCYTE ESTERASE, URINE AUTO 3+ (NEGATIVE); MUCUS, URINE SMALL (NEGATIVE); NITRITE, URINE AUTO NEGATIVE (NEGATIVE); PROTEIN, URINE AUTO 1+ mg/dL (NEGATIVE); RBC, URINE AUTO 7 /HPF (0-3); SPECIFIC GRAVITY URINE AUTO 1.011 (1.002-1.035); SQUAMOUS EPITHELIAL CELL UR AU 0 /HPF (0-6); UROBILINOGEN, URINE AUTO 0.2 mg/dL (0.0-2.0); WBC, URINE AUTO 181 /HPF (0-3)
[2020-03-28] MEDS ORDERED: ISOVUE-370 76% 100ML VIAL As Ordered ONE (17:00)
--- NOTE | 2020-03-28 18:31 | REPVR ---
PROCEDURE INFORMATION: Exam: CT Abdomen And Pelvis With Contrast Exam date and time: 03/28/2020 6:06 PM Age: 25 years old Clinical indication: Abdominal pain; Additional info: Lower abd pain TECHNIQUE: Imaging protocol: Computed tomography of the abdomen and pelvis with intravenous contrast. Radiation optimization: All CT scans at this facility use at least one of these dose optimization techniques: automated exposure control; mA and/or kV adjustment per patient size (includes targeted exams where dose is matched to clinical indication); or iterative reconstruction. Contrast material: ISOVUE 370; Contrast volume: 100 ml; Contrast route: INTRAVENOUS (IV); COMPARISON: CT ABD/PEL W/IV CONTRAST ONLY 10/22/2017 12:08 AM FINDINGS: Lungs: No suspicious mass or airspace process in the visualized lung bases. Liver: Liver is diffusely enlarged. Gallbladder and bile ducts: Gallbladder is present and shows no evidence of gallstone. Pancreas: Pancreas appears normal. No focal mass or peripancreatic inflammation. Spleen: Spleen appears homogeneous without focal mass. Adrenal glands: Adrenal glands are normal in appearance. Kidneys and ureters: Left kidney is unremarkable. Right kidney demonstrates perinephric stranding and mild enlargement with patchy areas of decreased enhancement, and mild collecting system and ureter dilatation with abnormal urothelial enhancement. No identifiable ureter stone. Stomach and bowel: No evidence of small bowel obstruction. No evidence of acute diverticulitis. Appendix: Normal caliber appendix is identified, with no adjacent inflammation. Intraperitoneal space: No pneumoperitoneum. Vasculature: No aortic aneurysm. Main portal and splenic veins enhance normally. Lymph nodes: No enlarged lymph nodes. Urinary bladder: Urinary bladder appears normal. Reproductive: Female reproductive organs appear unremarkable. Bones/joints: Bony structures show no acute fracture or destructive process. Soft tissues: No concerning focal abnormality of the extra-abdominal and pelvic soft tissues. IMPRESSION: Right-sided pyelonephritis without ureter stone. Electronically signed by: Papito Douglas On 03/28/2020 18:30:59 PM
[2020-03-28 18:47] VITALS: BP 113/58
[2020-03-28] MEDS ORDERED: LevoFLOXacin IV 750 MG in IV 1 EA IV ONE (19:15)
[2020-03-28] MEDS ORDERED: KETOROLAC 30 MG/ML 1ML VIAL IV ONE (19:30)
[2020-03-28] MEDS ORDERED: CIPR-249 PO (21:05)
--- NOTE | 2020-03-29 08:31 | ECGEPIP ---
[facility] - ED Test Date: 2020-03-28 Pat Name: ADY REEVES Department: Room: - Gender: Female [employer]ill [employer]ner Helper: SHARONDA : 1995 Requested By: JAN Ennis Order Number: [id number] Reading MD: Jan Arvizu Measurements Intervals [place] Rate: 123 P: 52 MS: 133 QRS: 55 QRSD: 82 T: 14 QT: 289 QTc: 414 Interpretive Statements SINUS TACHYCARDIA Comparison tracing not on file Electronically Signed on 03-29-2020 8:31:18 EST by Jan Arvizu
== END 2020-03-28 21:27 | disposition home or self-care (01) ==
LOC: M ED 14:21
DX: N10 Acute pyelonephritis (principal); J45.909 Unspecified asthma, uncomplicated; F41.9 Anxiety disorder, unspecified; F17.210 Nicotine dependence, cigarettes, uncomplicated
CPT/HCPCS: 74177; 76856; 80048; 80076; 81001; 83605; 83690; 85025; 87040; 93005; 96361; 96365; 96375; 99284; J1885; J1956; J2270; Q9967

== ENCOUNTER → 2021-03-21 | Outpatient (CLI) | payer MEDICAID | LOC: M OUTALCOH 07:56 | PROVIDERS: ATTEND Psychiatry & Neurology Psychiatry | DX: Z03.89 Encounter for observation for other suspected diseases and conditions ruled out (principal) ==

== ENCOUNTER 2021-03-27 15:05 | Outpatient (RCR) | payer MEDICAID | END 2021-04-20 | LOC: M OUTALCOH 15:05 | PROVIDERS: ATTEND Psychiatry & Neurology Psychiatry | DX: Z03.89 Encounter for observation for other suspected diseases and conditions ruled out (principal); Z72.0 Tobacco use ==

== ENCOUNTER → 2022-02-15 | Outpatient (REF) | payer MEDICAID, OTHER ==
[2022-02-15 21:18] LABS: APPEARANCE, URINE MANUAL CLEAR (CLEAR); COLOR, URINE MANUAL YELLOW (YELLOW)
[2022-02-15 21:19] LABS: BILIRUBIN, URINE MANUAL NEGATIVE (NEGATIVE); BLOOD URINE MANUAL NEGATIVE (NEGATIVE); GLUCOSE, URINE (UA) MANUAL NEGATIVE (NEGATIVE); KETONE, URINE MANUAL NEGATIVE (NEGATIVE); LEUKOCYTE ESTERASE, URINE MAN NEGATIVE (NEGATIVE); NITRITE, URINE MANUAL NEGATIVE (NEGATIVE); PROTEIN, URINE MANUAL NEGATIVE (NEGATIVE); SPECIFIC GRAVITY,URINE MANUAL 1.025 (1.002-1.035); UROBILINOGEN, URINE MANUAL NORMAL (NORMAL)
== END ==
LOC: M LAB REF 20:55
PROVIDERS: ATTEND Physician Assistant
DX: N39.0 Urinary tract infection, site not specified (principal)

== ENCOUNTER → 2022-11-19 | Outpatient (REF) | payer MEDICAID, OTHER | LOC: M SFHCWAGY 16:50 | PROVIDERS: ATTEND Nurse Practitioner Family | DX: R10.2 Pelvic and perineal pain (principal); Z11.3 Encounter for screening for infections with a predominantly sexual mode of transmission; Z12.4 Encounter for screening for malignant neoplasm of cervix ==

== ENCOUNTER → 2023-01-02 | Outpatient (CLI) | payer OTHER | LOC: M WHC 14:53 | PROVIDERS: ATTEND Nurse Practitioner Family | DX: N83.292 Other ovarian cyst, left side (principal); R10.2 Pelvic and perineal pain ==

== ENCOUNTER 2023-06-11 08:12 | Day surgery (SDC) | payer OTHER ==
[~2023-06-11] VITALS: Ht 157.5 cm; Wt 109.3 kg
[~2023-06-11 08:12] MED LIST changes: +PARO5TAB PO
[2023-06-11 09:25] LABS: HEMATOCRIT 38.7 % (36.0-47.0); HEMOGLOBIN 12.8 g/dl (12.0-15.5); MEAN CORPUSCULAR HEMOGLOBIN 30.1 pg (27.0-33.0); MEAN CORPUSCULAR HGB CONC 33.1 g/dl (32.0-36.5); MEAN CORPUSCULAR VOLUME 91.1 fl (80.0-96.0); PLATELET COUNT, AUTOMATED 416 10^3/uL (150-450); RED BLOOD COUNT 4.25 10^6/uL (4.00-5.40); WHITE BLOOD COUNT 10.1 10^3/uL (4.0-10.0)
[2023-06-11] MEDS ORDERED: propofoL 200 MG/20 ML VIAL As Ordered ONE (09:28)
[2023-06-11] MEDS ORDERED: LIDOCAINE 2% 100MG/5ML SDV (FOR ANES.) As Ordered ONE (09:28)
[2023-06-11] MEDS ORDERED: ROCURONIUM BROMIDE 50MG/5ML VIAL As Ordered ONE (09:28)
[2023-06-11] MEDS ORDERED: fentaNYL 100 MCG/2 ML INJECTION As Ordered ONE (09:31)
[2023-06-11] MEDS ORDERED: MIDAZOLAM INJ 2MG/2ML VIAL As Ordered ONE (09:31)
[2023-06-11] MEDS ORDERED: ACETAMINOPHEN 1000MG 100ML IV BAG As Ordered ONE (10:36)
[2023-06-11] MEDS ORDERED: KETOROLAC 60MG 2ML VIAL As Ordered ONE (11:01)
[2023-06-11] MEDS ORDERED: ONDANSETRON 4MG 2ML VIAL As Ordered ONE (11:01)
[2023-06-11] MEDS ORDERED: LR 1,000 ML IV SCH (11:35)
[2023-06-11] MEDS: ONDANSETRON 4MG 2ML VIAL IV PRN (12:02)
[2023-06-11] MEDS: fentaNYL 100 MCG/2 ML INJECTION IV PRN (12:02)
[2023-06-11] MEDS: oxyCODONE 5MG TAB PO PRN (12:28)
[2023-06-11 13:00] VITALS: BP 120/77; TEMP 97; O2SAT 98
== END 2023-06-11 13:35 | disposition home or self-care (01) ==
LOC: M SDC 08:12
PROVIDERS: ATTEND Obstetrics & Gynecology
DX: Z30.2 Encounter for sterilization (principal); K66.0 Peritoneal adhesions (postprocedural) (postinfection); J45.909 Unspecified asthma, uncomplicated; K21.9 Gastro-esophageal reflux disease without esophagitis; F32.A Depression, unspecified; F41.9 Anxiety disorder, unspecified; Z79.899 Other long term (current) drug therapy; F17.210 Nicotine dependence, cigarettes, uncomplicated
CPT/HCPCS: 36415; 58661; 81025; 85027; 86850; 86900; 86901; 88302; J0131; J0665; J1100; J1885; J2250; J2405; J3010

== ENCOUNTER 2023-08-20 08:27 | Emergency (ER) | payer OTHER ==
[~2023-08-20] VITALS: Ht 157.5 cm; Wt 109.9 kg
[2023-08-20 09:32] LABS: BASO # 0.1 10^3/uL (0.0-0.2); EOS # 0.4 10^3/uL (0.0-0.5); EOS % 3.3 % (0.0-3.0); HEMATOCRIT 40.2 % (36.0-47.0); HEMOGLOBIN 13.1 g/dl (12.0-15.5); LYMPH % 30.5 % (24.0-44.0); MEAN CORPUSCULAR HGB CONC 32.6 g/dl (32.0-36.5); MONO % 7.6 % (2.0-8.0); NEUTROPHILS # 7.4 10^3/uL (1.5-8.5); NEUTROPHILS % 57.1 % (36.0-66.0); PLATELET COUNT, AUTOMATED 419 10^3/uL (150-450); RED BLOOD COUNT 4.37 10^6/uL (4.00-5.40)
[2023-08-20] MEDS: KETOROLAC 30 MG/ML 1ML VIAL IV ONE (09:43)
[2023-08-20 10:03] LABS: HCG, SERUM QUALITATIVE NEGATIVE (NEGATIVE)
[2023-08-20 10:04] LABS: BLOOD UREA NITROGEN 8 MG/DL (9-23); CALCIUM LEVEL 9.2 MG/DL (8.5-10.1); CARBON DIOXIDE LEVEL 28 MMOL/L (20-31); CHLORIDE LEVEL 103 MMOL/L (98-107); GLOMERULAR FILTRATION RATE > 60.0 (>60); GLUCOSE, FASTING 69 MG/DL (60-100); POTASSIUM SERUM 4.2 MMOL/L (3.5-5.1); SODIUM LEVEL 136 MMOL/L (136-145)
[2023-08-20 12:04] VITALS: BP 142/80; TEMP 98; O2SAT 100
== END 2023-08-20 12:05 | disposition home or self-care (01) ==
LOC: M ED 08:27
DX: N13.2 Hydronephrosis with renal and ureteral calculous obstruction (principal); N23 Unspecified renal colic; Z98.51 Tubal ligation status; F17.200 Nicotine dependence, unspecified, uncomplicated
CPT/HCPCS: 74176; 80048; 81001; 84703; 85025; 96374; 99284; J1885